=== PATIENT | female | born 1985 | race Caucasian/White ===

== ENCOUNTER → 2016-10-26 | Outpatient (CLI) | payer BC ==
[~2016-10-26] MED LIST: BSP/5 PO; ETONMIS VAGRING; HYDR-5688 PO; PANT40TA PO; SERT-234 PO
--- NOTE | 2016-10-26 14:59 | DIAGNOSTIC IMAGING REPORT ---
RIGHT HAND MIN 3 VIEWS ROUTINE CLINICAL HISTORY: Polyarthralgia. Malar rash. COMPARISON: Right wrist radiographs April 12, 2010. FINDINGS: Alignment of the right hand is anatomic. Joint spaces are preserved. No erosions are identified. There is no fracture or suspicious lesion. IMPRESSION: Unremarkable right hand radiographs. No radiographic evidence of an erosive/inflammatory arthropathy. Electronically signed by: Evaristo Evans M.D. 10/26/2016 2:57 PM Dictated Date/Time: 10/26/2016 2:56 PM
--- NOTE | 2016-10-26 15:00 | DIAGNOSTIC IMAGING REPORT ---
RIGHT KNEE 3 VIEWS CLINICAL HISTORY: Polyarthralgia. FINDINGS: AP, lateral, and sunrise views of the right knee are obtained. No prior studies are available for comparison at the time of dictation. The skeletal structures are well mineralized. No fracture is seen. The joint spaces of the knee are well-maintained. No erosive change is suspected. There are tiny patellar enthesophytes. No joint effusion is identified. The overlying soft tissues are within normal limits. IMPRESSION: Unremarkable radiographic assessment of the right knee. Electronically signed by: El Hoffman M.D. 10/26/2016 2:58 PM Dictated Date/Time: 10/26/2016 2:57 PM
--- NOTE | 2016-10-26 15:04 | DIAGNOSTIC IMAGING REPORT ---
LEFT HAND MIN 3 VIEWS ROUTINE CLINICAL HISTORY: Polyarthralgia. Malar rash. COMPARISON: Left wrist radiographs February 27, 2012. FINDINGS: Alignment of the left hand is anatomic. There is no fracture or suspicious lesion. Joint spaces are preserved. No erosions are identified. Subtle deformity of the left fifth metacarpal is chronic. IMPRESSION: No significant abnormality of the left hand. No radiographic evidence of an erosive/inflammatory arthropathy. Electronically signed by: Evaristo Evans M.D. 10/26/2016 3:02 PM Dictated Date/Time: 10/26/2016 2:57 PM
[2016-10-26 15:48] LABS: URINE APPEARANCE CLEAR (CLEAR); URINE BILIRUBIN NEG (NEG); URINE COLOR YELLOW; URINE EPITHELIAL CELL AUTO 0-5 /lpf (0-5); URINE NITRITE NEG (NEG); URINE SPECIFIC GRAVITY 1.017 (1.000-1.030); UROBILINOGEN NEG (NEG)
[2016-10-26 16:00] LABS: MANUAL MICROSCOPIC REQUIRED? NO; REVIEW REQ? NO
[2016-11-01 07:43] LABS: ANTI-CENTROMERE AB <1.0 NEG AI (<1.0 NEG); ANTI-SS-A <1.0 NEG AI (<1.0 NEG); ANTI-SS-B <1.0 NEG AI (<1.0 NEG); DNA ds CRITHIDIA NEGATIVE (NEGATIVE); Sm Antibody <1.0 NEG AI (<1.0 NEG)
== END | disposition home or self-care (01) ==
LOC: C.RAD1850 14:32
PROVIDERS: ATTEND Internal Medicine Rheumatology
DX: M25.561 Pain in right knee (principal); R21 Rash and other nonspecific skin eruption

== ENCOUNTER → 2016-11-10 | Outpatient (CLI) | payer BC ==
--- NOTE | 2016-11-10 15:05 | DIAGNOSTIC IMAGING REPORT ---
WHOLE BODY BONE SCAN HISTORY: POLYARTHRALGIA RADIOTRACER: 26.9 mCi Tc-99m MDP STUDY/IMAGES: Planar anterior and posterior whole body imaging was performed 3 hours following the intravenous administration of radiotracer. COMPARISON: Right knee and bilateral hands 10/26/2016. FINDINGS: Mild asymmetric radiotracer uptake seen within the right sternoclavicular joint and at the sternomanubrial joint. Otherwise, no abnormal radiotracer uptake seen within the axial or appendicular skeleton. Mild S-shaped scoliosis of the spine. IMPRESSION: Mild asymmetric radiotracer uptake seen within the right sternoclavicular joint and at the sternomanubrial joint. This is nonspecific but favors mild degenerative change. If the patient has pain at these locations consider plain film follow-up for further evaluation. Electronically signed by: John Carrillo M.D. 11/10/2016 3:03 PM Dictated Date/Time: 11/10/2016 2:58 PM
== END | disposition home or self-care (01) ==
LOC: C.NUCL 11:11
PROVIDERS: ATTEND Internal Medicine Rheumatology
DX: M25.50 Pain in unspecified joint (principal)

== ENCOUNTER → 2017-02-03 | Outpatient (CLI) | payer BC ==
--- NOTE | 2017-02-03 12:20 | DIAGNOSTIC IMAGING REPORT ---
STERNUM MIN 2 VIEWS CLINICAL HISTORY: 31 years-old Female presenting with abnormal bone scan. TECHNIQUE: Oblique and lateral views of the sternum were obtained. COMPARISON: Correlation made to bone scan from 11/10/2016. FINDINGS/IMPRESSION: No radiographic abnormality of the sternum or sternomanubrial joints. This does not exclude potential degenerative change. Visualized portion of the thorax normal. Electronically signed by: Tj Ndiaye M.D. 02/03/2017 12:18 PM Dictated Date/Time: 02/03/2017 12:16 PM
--- NOTE | 2017-02-03 13:20 | DIAGNOSTIC IMAGING REPORT ---
STERNOCLAVICULAR JOINT(S) CLINICAL HISTORY: 31 years-old Female presenting with ABNORMAL BONE SCAN. TECHNIQUE: Frontal and bilateral oblique views of the right sternoclavicular joint were obtained. COMPARISON: 05/11/2015 and bone scan from 11/10/2016.. FINDINGS/IMPRESSION: No gross evidence of degenerative change at the sternomanubrial joints. No destructive osseous lesion is evident in the clavicular heads. Visualized portion of the thorax normal. Electronically signed by: Tj Ndiaye M.D. 02/03/2017 1:19 PM Dictated Date/Time: 02/03/2017 1:16 PM
== END | disposition home or self-care (01) ==
LOC: C.RAD1850 11:55
PROVIDERS: ATTEND Nurse Practitioner Family
DX: R94.8 Abnormal results of function studies of other organs and systems (principal)

== ENCOUNTER → 2017-02-15 | Outpatient (CLI) | payer OTHER, BC ==
--- NOTE | 2017-02-15 16:35 | DIAGNOSTIC IMAGING REPORT ---
RIGHT FOOT MIN 3 VIEWS ROUTINE CLINICAL HISTORY: RT FOOT PAIN Right pain COMPARISON: None. DISCUSSION: The bones and joint spaces appear intact. There is no evidence of fracture, dislocation or bony disease. There is no evidence for soft tissue swelling. IMPRESSION: Negative study. The above report was generated using voice recognition software. It may contain grammatical, syntax or spelling errors. Electronically signed by: James Brambila M.D. 02/15/2017 4:33 PM Dictated Date/Time: 02/15/2017 4:25 PM
== END | disposition home or self-care (01) ==
LOC: C.RAD1850 16:07
PROVIDERS: ATTEND Emergency Medicine
DX: M79.671 Pain in right foot (principal)

== ENCOUNTER → 2017-09-29 | Outpatient (CLI) | payer OTHER ==
--- NOTE | 2017-09-29 15:04 | DIAGNOSTIC IMAGING REPORT ---
EXAMINATION: PELVIC ULTRASOUND (transabdominal and endovaginal scanning) CLINICAL HISTORY: PELVIC PAIN COMPARISON STUDY: 03/20/2013 FINDINGS: The uterus measured 77 x 38 x 39 mm. The endometrial stripe measured 5 mm. The right ovary measured 2 x 11 x 27 mm. The left ovary measured 15 x 29 x 12 mm.. There is no ultrasonographic evidence of ovarian torsion. It should be noted that ovarian torsion can be present with normal Doppler ultrasonographic findings. There is a small amount of free fluid in the cul-de-sac, likely physiologic. IMPRESSION: 1. Normal ovaries and uterus 2. Small amount of free fluid in the cul-de-sac, likely physiologic Electronically signed by: Arnold Raymond M.D. 09/29/2017 3:02 PM Dictated Date/Time: 09/29/2017 3:01 PM
== END | disposition home or self-care (01) ==
LOC: C.ULTR 14:26
PROVIDERS: ATTEND Nurse Practitioner Family
DX: R10.2 Pelvic and perineal pain (principal)

== ENCOUNTER → 2017-10-31 | Outpatient (CLI) | payer OTHER ==
--- NOTE | 2017-10-31 11:00 | DIAGNOSTIC IMAGING REPORT ---
R HAND MIN 3 VIEWS ROUTINE CLINICAL HISTORY: Right hand pain (base of thumb). Evaluate for fracture. COMPARISON: Right hand radiographs October 26, 2016. FINDINGS: Alignment of the right hand is anatomic. No fractures identified. Joint spaces are preserved. No erosions are identified. The appearance of the right thumb is unchanged. Carpal bones are intact. IMPRESSION: No acute fracture or dislocation within the right hand. Electronically signed by: Evaristo Evans M.D. 10/31/2017 10:59 AM Dictated Date/Time: 10/31/2017 10:57 AM
== END | disposition home or self-care (01) ==
LOC: C.RAD1850 10:48
PROVIDERS: ATTEND Emergency Medicine
DX: Z12.4 Encounter for screening for malignant neoplasm of cervix (principal); Z11.51 Encounter for screening for human papillomavirus (HPV)